=== PATIENT | female | born 1945 ===

== ENCOUNTER 2018-02-03 04:45 | Day surgery (SDC) | payer OTHER ==
[~2018-02-03 04:45] MED LIST: ASPIR 8181 MG PO; CEFADROXIL500 MG PO; GLUCOPHAGE XR500 MG PO; HYDROCHLOROTH12.5 M1 PO; LIPITOR20 MG PO; LOSARTAN POTASS50 MG PO; NORVASC2.5 M1 PO; OXYC1TAB9 PO; PNEU16DI2; TENORMIN50 MG PO; TOPROL XL50 MG PO; TRAM1TAB98 PO; XARELTO 10MG PO; ZOCOR20 MG PO
[2018-02-03] MEDS ORDERED: TRAM1TAB98 PO (08:49)
[2018-02-03] MEDS ORDERED: DUI500 PO (08:49)
== END 2018-02-03 13:10 | disposition home or self-care (01) ==
LOC: CIR.AMB 04:45
DX: S83.232A Complex tear of medial meniscus, current injury, left knee, initial encounter (principal); M65.862 Other synovitis and tenosynovitis, left lower leg; S83.272A Complex tear of lateral meniscus, current injury, left knee, initial encounter; M17.12 Unilateral primary osteoarthritis, left knee

== ENCOUNTER 2019-09-17 06:19 | Outpatient (CLI) | payer OTHER ==
[~2019-09-17 06:19] MED LIST changes: +DUI500 PO
== END 2019-09-17 06:29 | disposition home or self-care (01) ==
LOC: LAB 06:19
DX: D68.8 Other specified coagulation defects (principal); Z01.811 Encounter for preprocedural respiratory examination; I10 Essential (primary) hypertension

== ENCOUNTER → 2019-09-18 06:00 | Outpatient (CLI) | payer OTHER ==
[~2019-09-18] VITALS: Ht 157.5 cm; Wt 81.6 kg
== END | disposition home or self-care (01) ==
LOC: LAB 06:00 → SURH 09-21 07:56 → EDSTATUS 09-21 14:30 → SURH 09-21 14:30
DX: M17.12 Unilateral primary osteoarthritis, left knee (principal); I10 Essential (primary) hypertension

== ENCOUNTER 2019-11-23 08:45 | Inpatient (IN) | payer OTHER ==
[~2019-11-23] VITALS: Ht 157.5 cm; Wt 81.6 kg
[2019-12-17] MEDS ORDERED: INTEGRA PLUS C1 EACH PO (07:08)
[2019-12-17] MEDS ORDERED: OXYC1TAB9 PO (07:08)
[2019-12-17] MEDS ORDERED: XARELTO10 MG PO (07:08)
== END 2019-12-17 13:07 | DRG 470 ==
LOC: EDSTATUS 08:45 → ADM 08:45 → SURH 12-14 06:30 → O/R 12-14 06:30 → SURH 12-14 08:30
PROVIDERS: ADMIT Orthopaedic Surgery Sports Medicine; ATTEND Orthopaedic Surgery Sports Medicine
PROC: 0SRD0J9 Replacement of Left Knee Joint with Synthetic Substitute, Cemented, Open Approach (ICD-10-PCS; principal; 2019-12-14 08:30)
DX: M17.12 Unilateral primary osteoarthritis, left knee (principal); E11.9 Type 2 diabetes mellitus without complications; I10 Essential (primary) hypertension; Z96.652 Presence of left artificial knee joint

== ENCOUNTER 2021-09-11 05:35 | Day surgery (SDC) | payer OTHER ==
[~2021-09-11 05:35] MED LIST changes: +INTEGRA PLUS C1 EACH PO; +XARELTO10 MG PO
[2021-09-11] MEDS ORDERED: TRAMADOL HCL50 MG PO (08:47)
[2021-09-11] MEDS ORDERED: DUI500 PO (08:47)
== END 2021-09-11 10:41 | disposition home or self-care (01) ==
LOC: CIR.AMB 05:35
PROVIDERS: ATTEND Orthopaedic Surgery Sports Medicine
DX: M65.331 Trigger finger, right middle finger (principal); I10 Essential (primary) hypertension; Z79.82 Long term (current) use of aspirin; Z79.01 Long term (current) use of anticoagulants; Z88.8 Allergy status to other drugs, medicaments and biological substances; E78.00 Pure hypercholesterolemia, unspecified; E11.9 Type 2 diabetes mellitus without complications; Z79.84 Long term (current) use of oral hypoglycemic drugs; Z20.822 Contact with and (suspected) exposure to COVID-19